=== PATIENT | male | born 1955 | race Caucasian/White ===

== ENCOUNTER 2018-03-31 15:19 | Emergency (ER) | payer OTHER ==
[~2018-03-31] VITALS: Ht 182.9 cm; Wt 90.7 kg
[~2018-03-31 15:19] MED LIST: ACET325 PO; ANTIBIOTIC; Bystolic5 MG PO; FLUSAL1005 INH; FLUSAL2505 INH; NEBI10 PO; TIOT18 INH
[2018-03-31] MEDS ORDERED: GABA300 PO (15:45)
== END 2018-03-31 16:13 | disposition home or self-care (01) ==
LOC: ER 15:19
DX: F41.9 Anxiety disorder, unspecified (principal); Z79.899 Other long term (current) drug therapy; I10 Essential (primary) hypertension; Z87.891 Personal history of nicotine dependence
CPT/HCPCS: 99283

== ENCOUNTER 2019-12-26 13:39 | Inpatient (IN) | payer OTHER ==
[~2019-12-26] VITALS: Ht 185.4 cm; Wt 89.4 kg
[~2019-12-26 13:39] MED LIST changes: -FLUSAL2505 INH
[2019-12-26 14:03] LABS: BASOPHILS ABSOLUTE AUTO 0.01 K/mm3 (0.00-0.23); BASOPHILS PERCENT AUTO 0 % (0-2); EOSINOPHILS ABSOLUTE AUTO 0.03 K/mm3 (0.00-0.68); EOSINOPHILS PERCENT AUTO 0 % (0-6); Hematocrit 52.6 % (37.0-53.0); Hemoglobin 17.4 g/dL (13.5-17.5); IMMATURE GRAN ABSOLUTE AUTO 0.03 K/mm3 (0.00-0.10); IMMATURE GRAN PERCENT AUTO 0 % (0-1); LYMPHOCYTES ABSOLUTE AUTO 1.46 K/mm3 (0.84-5.20); LYMPHOCYTES PERCENT AUTO 14 % (21-46); MONOCYTES ABSOLUTE AUTO 0.61 K/mm3 (0.16-1.47); MONOCYTES PERCENT AUTO 6 % (4-13); Mean Corpuscular HGB 32.7 pg (26.0-34.0); Mean Corpuscular HGB Conc 33.1 g/dL (31.5-36.5); Mean Corpuscular Volume 99 fL (80-100); Mean Platelet Volume 10.9 fL (9.1-12.4); NEUTROPHILS ABSOLUTE AUTO 8.03 K/mm3 (1.96-9.15); NEUTROPHILS PERCENT AUTO 79 % (41-73); Platelet Count 150 K/mm3 (150-400); RDW Coefficient Variation 13.2 % (11.7-14.2); RDW Standard Deviation 48.2 fL (35.1-46.3); Red Blood Cell Count 5.32 M/mm3 (4.30-5.90); White Blood Cell Count 10.17 K/mm3 (4.00-11.30)
[2019-12-26 14:17] LABS: International Normalized Ratio 0.95; Prothrombin Time Results 10.2 Sec (9.7-11.5)
[2019-12-26 14:18] LABS: Alanine Aminotransfer (ALT/SGP 39 U/L (12-78); Albumin, Blood 4.1 g/dL (3.4-5.0); Albumin/Globulin Ratio 1.1 (0.8-1.8); Alk Phos 79 U/L (50-136); Anion Gap 4 mmol/L (6-16); Aspartate Aminotrans (AST/SGOT 20 U/L (12-37); Bilirubin, Total 1.2 mg/dL (0.1-1.0); Blood Urea Nitrogen 17 mg/dL (8-24); Bun/Creatinine Ratio 18.3 (12.0-20.0); CO2, Blood 28 mmol/L (21-32); Calcium, Blood 9.5 mg/dL (8.5-10.1); Chloride, Blood 105 mmol/L (98-108); Creatinine, Blood 0.93 mg/dL (0.60-1.20); Ethanol (Alcohol), Blood, Med <3 mg/dL; Globulin, Blood 3.6 g/dL (2.2-4.0); Glomerular Filtration Rate >60 (60-); Glucose, Blood 106 mg/dL (70-99); Potassium, Blood 4.4 mmol/L (3.5-5.5); Sodium, Blood 137 mmol/L (136-145); Total Protein, Blood 7.7 g/dL (6.4-8.2)
[2019-12-26] MEDS ORDERED: INCRUSE ELLI62.5 MC1 INH (15:00)
[2019-12-26] MEDS ORDERED: WIXELA 250-501 EAC1 INH (15:01)
[2019-12-26] MEDS ORDERED: GABA300 PO (15:01)
[2019-12-26] MEDS ORDERED: METO50ER PO (15:02)
[2019-12-26] MEDS ORDERED: Ventolin/Prove6.7 GM INH (15:04)
--- NOTE | 2019-12-26 19:05 | NUR ---
PT ADMITTED TO ROOM 312 FROM ED AT 1735. ABLE TO TRANSFER TO BED WITH 1 PERSON SBA. ENCOURAGED PT TO USE CALL BUTTON FOR HELP RATHER THAN GETTING UP BY HIMSELF. SLURRING HIS WORDS AND L FACIAL DROOP NOTED ON VISUAL ASSESSMENT. GLYCERIN SWABS AND LIP BALM GIVEN FOR ORAL COMFORT UNTIL ABLE TO BE EVALUATED BY MODELING AND SIMULATION ANALYST. UNISHEAR OPERATOR REPORTED NOTING A R FACIAL DROOP WHEN COMING UP TO FLOOR WITH PT BUT NONE NOTED ON ARRIVAL OR DURING ASSESSMENT.
--- NOTE | 2019-12-27 04:27 | NUR ---
SHIFT SUMMARY- PT. A&O, PLEASANT AND COOPERATIVE WITH CARE. NOTED TO HAVE LT FACIAL DROOP AND SLURRED SPEECH. PT. INSTRUCTED TO USE CALL LIGHT FOR ASSISTANCE TO THE BATHROOM. ALSO SUCTION WAS SET UP AT BEDSIDE, EDUCATED PT. ON PRN USE FOR INCREASE SECRETIONS. PT. VERBALIZED UNDERSTANDING. PT. APPEARED TO HAVE RESTED WELL T/O THE SHIFT, NO APPARENT DISTRESS NOTED. NPO FOR ST EVAL THIS AM. CALL LIGHT WITHIN REACH AND SIDE RAILS UP X2. WILL CONT TO MONITOR.
[2019-12-27 06:04] LABS: CHOL/HDL RATIO 4.7; Cholesterol 196 mg/dL (50-200); HDL Cholesterol 42 mg/dL (>39); LDL/HDL RATIO 2.9; Low Density Lipoprotein Chol 121 mg/dL (0-110); Triglycerides 167 mg/dL (30-160); Very Low Density Lipoprot Chol 33 mg/dL (6-32)
--- NOTE | 2019-12-27 19:39 | NUR ---
SHIFT SUMMARY: NO ACUTE CHANGES TO REPORT THIS SHIFT. PT A&O; CALM AND COOPERATIVE WITH CARE. STROKE c L SIDE FACILA DROOP & SLURRED SPEECH; PT HX BELLS PALSY. SPEECH EVAL TODAY; ASPIRATION PRECAUTIONS. FLUIDS & ANTICOAGULANTS CONTINUING. REPORT GIVEN TO ONCOMING RN.
--- NOTE | 2019-12-27 22:55 | NUR ---
HEARTBURN *LATE ENTRY* PT REPORTS HEARTBURN & "ACID" FEELING & ASKS FOR TUMS. NOTIFIED HERMAN P & HE ORDERED 20MG PEPCID BID, ALONG W/1000MG TUMS PRN. MEDICATED PT & WILL CONT TO MONITOR.
[2019-12-28 05:46] LABS: Alanine Aminotransfer (ALT/SGP 35 U/L (12-78); Albumin, Blood 3.3 g/dL (3.4-5.0); Albumin/Globulin Ratio 1.1 (0.8-1.8); Alk Phos 64 U/L (50-136); Anion Gap 3 mmol/L (6-16); Aspartate Aminotrans (AST/SGOT 17 U/L (12-37); Bilirubin, Total 1.6 mg/dL (0.1-1.0); Blood Urea Nitrogen 12 mg/dL (8-24); Bun/Creatinine Ratio 15.3 (12.0-20.0); CO2, Blood 26 mmol/L (21-32); Calcium, Blood 8.4 mg/dL (8.5-10.1); Chloride, Blood 109 mmol/L (98-108); Creatinine, Blood 0.79 mg/dL (0.60-1.20); Globulin, Blood 3.1 g/dL (2.2-4.0); Glomerular Filtration Rate >60 (60-); Glucose, Blood 94 mg/dL (70-99); Potassium, Blood 4.1 mmol/L (3.5-5.5); Sodium, Blood 138 mmol/L (136-145); Total Protein, Blood 6.4 g/dL (6.4-8.2)
--- NOTE | 2019-12-28 06:38 | NUR ---
SHIFT SUMMARY NO ACUTE CHANGES THIS SHIFT. AOX4. VSS. L FACIAL DROOP w/OCCASIONAL SLURRING OF WORDS, NO OTHER DEFICITS. 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 REPORTED HEARTBURN, ACID & MEDICATED PER NEW ORDERS, PT REPORTED RELIEF. TELE NSR HR 63. PT REPORTS HE IS HOPING TO DC HOME TODAY. CALL LIGHT IN REACH.
[2019-12-28] MEDS ORDERED: ASPI81CH PO (16:24)
[2019-12-28] MEDS ORDERED: ATOR40TA PO (16:25)
[2019-12-28] MEDS ORDERED: CLOP75 PO (16:25)
--- NOTE | 2019-12-28 17:36 | NUR ---
PATIENT DISCHARGE: PATIENT DISCHARGED TO HOME THIS SHIFT. MEDICATION RECONCILIATION COMPLETED; MED LIST FAXED TO [facility]. DISCHARGE EDUCATION COMPLETED WITH PATIENT. PATIENT TRANSPORTED TO EXIT BY [facility] STAFF WITH WHEELCHAIR AT 1710. PATIENT DEPARTED [facility] VIA PRIVATE AUTO.
== END 2019-12-28 17:08 | disposition home or self-care (01) | DRG 66 ==
LOC: ER 13:39 → MEDS 15:41
PROVIDERS: Internal Medicine; Nurse Practitioner Acute Care; Physician Assistant; ADMIT Internal Medicine
DX: I63.511 Cerebral infarction due to unspecified occlusion or stenosis of right middle cerebral artery (principal); R29.810 Facial weakness; Z87.891 Personal history of nicotine dependence; I10 Essential (primary) hypertension; J44.9 Chronic obstructive pulmonary disease, unspecified; I73.9 Peripheral vascular disease, unspecified; I65.21 Occlusion and stenosis of right carotid artery; E78.5 Hyperlipidemia, unspecified; R47.81 Slurred speech
CPT/HCPCS: 36415; 70450; 71045; 80053; 80061; 83036; 84443; 85025; 85610; 92526; 92610; 93005; 93010; 93306; 93880; 94640; 94760; 97116; 97161; 97165; 97530; 99285-25; A9270-GY; G0480; J1650; J7030

== ENCOUNTER 2020-01-07 09:31 | Emergency (ER) | payer OTHER ==
[~2020-01-07] VITALS: Ht 185.4 cm; Wt 83.9 kg
[~2020-01-07 09:31] MED LIST changes: +ASPI81CH PO; +ATOR40TA PO; +CLOP75 PO; +GABA300 PO; +INCRUSE ELLI62.5 MC1 INH; +METO50ER PO; +Ventolin/Prove6.7 GM INH; +WIXELA 250-501 EAC1 INH
== END 2020-01-07 11:07 | disposition home or self-care (01) ==
LOC: ER 09:31
DX: R04.0 Epistaxis (principal); I10 Essential (primary) hypertension; J44.9 Chronic obstructive pulmonary disease, unspecified; I73.9 Peripheral vascular disease, unspecified; G62.9 Polyneuropathy, unspecified; Z79.82 Long term (current) use of aspirin; Z79.899 Other long term (current) drug therapy
CPT/HCPCS: 99283

== ENCOUNTER 2022-04-23 12:32 | Inpatient (IN) | payer OTHER ==
[~2022-04-23] VITALS: Ht 185.4 cm; Wt 95.7 kg
[2022-04-23 17:09] LABS: BASOPHILS ABSOLUTE AUTO 0.01 K/mm3 (0.00-0.23); BASOPHILS PERCENT AUTO 0 % (0-2); EOSINOPHILS ABSOLUTE AUTO 0.11 K/mm3 (0.00-0.68); EOSINOPHILS PERCENT AUTO 1 % (0-6); Hematocrit 52.5 % (37.0-53.0); Hemoglobin 16.9 g/dL (13.5-17.5); IMMATURE GRAN ABSOLUTE AUTO 0.05 K/mm3 (0.00-0.10); IMMATURE GRAN PERCENT AUTO 0 % (0-1); LYMPHOCYTES ABSOLUTE AUTO 1.69 K/mm3 (0.84-5.20); LYMPHOCYTES PERCENT AUTO 14 % (21-46); MONOCYTES ABSOLUTE AUTO 0.61 K/mm3 (0.16-1.47); MONOCYTES PERCENT AUTO 5 % (4-13); Mean Corpuscular HGB 31.5 pg (26.0-34.0); Mean Corpuscular HGB Conc 32.2 g/dL (31.5-36.5); Mean Corpuscular Volume 98 fL (80-100); Mean Platelet Volume 10.6 fL (9.1-12.4); NEUTROPHILS ABSOLUTE AUTO 9.45 K/mm3 (1.96-9.15); NEUTROPHILS PERCENT AUTO 79 % (41-73); Platelet Count 193 K/mm3 (150-400); RDW Coefficient Variation 12.7 % (11.7-14.2); RDW Standard Deviation 45.9 fL (35.1-46.3); Red Blood Cell Count 5.37 M/mm3 (4.30-5.90); White Blood Cell Count 11.92 K/mm3 (4.00-11.30)
[2022-04-23 17:30] LABS: Albumin, Blood 4.1 g/dL (3.4-5.0); Albumin/Globulin Ratio 1.1 (0.8-1.8); Bilirubin, Total 0.8 mg/dL (0.1-1.0); Bun/Creatinine Ratio 16.1 (12.0-20.0); Calcium, Blood 9.6 mg/dL (8.5-10.1); Creatinine, Blood 0.93 mg/dL (0.60-1.20); Globulin, Blood 3.7 g/dL (2.2-4.0); Potassium, Blood 4.5 mmol/L (3.5-5.5); Total Protein, Blood 7.8 g/dL (6.4-8.2)
[2022-04-24 03:58] LABS: BASOPHILS ABSOLUTE AUTO 0.01 K/mm3 (0.00-0.23); BASOPHILS PERCENT AUTO 0 % (0-2); EOSINOPHILS ABSOLUTE AUTO 0.13 K/mm3 (0.00-0.68); EOSINOPHILS PERCENT AUTO 1 % (0-6); Hemoglobin 15.2 g/dL (13.5-17.5); IMMATURE GRAN ABSOLUTE AUTO 0.01 K/mm3 (0.00-0.10); IMMATURE GRAN PERCENT AUTO 0 % (0-1); LYMPHOCYTES ABSOLUTE AUTO 2.25 K/mm3 (0.84-5.20); LYMPHOCYTES PERCENT AUTO 23 % (21-46); MONOCYTES ABSOLUTE AUTO 0.57 K/mm3 (0.16-1.47); MONOCYTES PERCENT AUTO 6 % (4-13); Mean Corpuscular HGB 31.9 pg (26.0-34.0); Mean Corpuscular Volume 97 fL (80-100); Mean Platelet Volume 10.4 fL (9.1-12.4); NEUTROPHILS ABSOLUTE AUTO 6.94 K/mm3 (1.96-9.15); NEUTROPHILS PERCENT AUTO 70 % (41-73); Platelet Count 177 K/mm3 (150-400); RDW Coefficient Variation 12.6 % (11.7-14.2); RDW Standard Deviation 45.1 fL (35.1-46.3); Red Blood Cell Count 4.76 M/mm3 (4.30-5.90); White Blood Cell Count 9.91 K/mm3 (4.00-11.30)
[2022-04-24 04:20] LABS: Calcium, Blood 8.4 mg/dL (8.5-10.1); Creatinine, Blood 0.79 mg/dL (0.60-1.20); Potassium, Blood 4.4 mmol/L (3.5-5.5)
--- NOTE | 2022-04-24 07:27 | NUR ---
SHIFT SUMMARY PT ARRIVED TO [facility] AT APPROXIMATELY 2200, PT STOOD AND TRANSFERED FROM [facility] TO HOSPITAL BED INDEPENDELY ONLY REQUIRING ASSISTANCE WITH MOVING WITH CHEST TUBE. PT A&Ox4, CALLS AND COMMUNICATES NEEDS APPROPRIATELY. VSS, SpO2> 92% RA, SINUS 80's. CHEST TUBE IN PLACE IN RIGHT LATERAL CHEST, DRESSING INTACT WITH SANGUINEOUS DRAINAGE THAT WAS PRESENT UPON ARRIVAL. PT REPORTS MILD DISCOMFORT AND SHARP PAIN AT INSERTION SITE WHEN TAKING DEEP BREATHS OR COUGHING. CHEST TUBE CONNECTED TO SUCTION, NO AIR LEAKS PRESENT. PT ARRIVED WITH 10mls SANGUINEOUS DRAINAGE, THERE IS NOW 30mls OF SANGUINEOUS DRAINAGE IN CANISTER. PT DENIES SOB. NO ACUTE EVENTS. REPORT OFF TO DAY SHIFT RNJOANA.
--- NOTE | 2022-04-24 18:22 | NUR ---
END OF SHIFT SUMMARY: PATIENT DENIED SHORTNESS OF BREATH AND CHEST PAIN THROUGHOUT THE SHIFT. PATIENT NOTED SOME TENDERNESS AT INSERTION SITE OF CHEST TUBE. DRESSING REMAINS INTACT WITH NO AIR LEAK NOTED. CHEST TUBE SET TO SUCTION PER ORDERS. MINIMAL SEROUS-SANGINOUS DRAINAGE IN TUBING. NO NEW DRAINAGE FROM INSERTION SITE. PATIENT SPO2 STABLE FROM 92-94% ON ROOM AIR. PATIENT UP TO THE CHAIR WITHOUT EXERTIONAL SHORTNESS OF BREATH OR DECREASE IN SPO2.
--- NOTE | 2022-04-25 01:09 | NUR ---
Chest tube update Chamber B of Atrium appears to be at 18 with indicator ball. Pt denies any significant changes to breathing. Sats 96% on 1 L via NC at this time. Crepitus remains in marked lines by this RN, concession supervisor Crystal called to bedside to verify as well. Pt has no complaints of pain at this time. Atrium remains below pt's chest hanging from lower side rail of bed to keep hose straight and prevent further kinking of tube. Suction at reccomended level of -80 on wall for Atrium and set to -20 on Atrium itself.
[2022-04-25 04:01] LABS: Hematocrit 44.8 % (37.0-53.0); Hemoglobin 14.8 g/dL (13.5-17.5); Mean Corpuscular HGB 31.8 pg (26.0-34.0); Mean Corpuscular Volume 96 fL (80-100); Mean Platelet Volume 10.5 fL (9.1-12.4); Platelet Count 164 K/mm3 (150-400); RDW Coefficient Variation 12.6 % (11.7-14.2); RDW Standard Deviation 45.1 fL (35.1-46.3); Red Blood Cell Count 4.66 M/mm3 (4.30-5.90); White Blood Cell Count 9.58 K/mm3 (4.00-11.30)
[2022-04-25 04:27] LABS: Albumin, Blood 3.2 g/dL (3.4-5.0); Bilirubin, Total 1.2 mg/dL (0.1-1.0); Calcium, Blood 8.3 mg/dL (8.5-10.1); Creatinine, Blood 0.75 mg/dL (0.60-1.20); Globulin, Blood 3.2 g/dL (2.2-4.0); Potassium, Blood 4.2 mmol/L (3.5-5.5); Total Protein, Blood 6.4 g/dL (6.4-8.2)
--- NOTE | 2022-04-25 06:49 | NUR ---
CALL TO DR SUMNER THIS RN CALLS TO NOTIFY DR SUMNER OF PT C/O WORSENED BREATHING RECENTLY THIS AM, NOTIFIED THAT RESULT OF CHEST XRAY HAS NOT BEEN REPORTED BACK AND REPEAT IS BEING DONE PER ORDER NOW. DR SUMNER TO REVIEW XRAY.
--- NOTE | 2022-04-25 08:11 | NUR ---
SHIFT SUMMARY PT AOX4, DENIES CP, SR 80'S. BREATHING APPEARS UNLABORED ALTHOUGH TACHYPNEIC RR 20'S. AT SHIFT CHANGE, THIS RN TO BEDSIDE WITH DAY RN AND KINK IN TUBING PROXIMAL TO INSERTION SITE ABOVE CONNECTION PORT NOTED. FLUCTUATION IN B CHAMBER NOTED. FLUCTUATION AT 3 CM. PT IN NO APPARENT DISTRESS. KINK RESOLVED BY DAY RN. SATS STABLE. NO CREPITUS NOTED TO CHEST. AROUND [id number] THIS RN TO BEDSIDE D/T PT SATS DROPPING INTO HIGH 80'S LOW 90'S. KINK NOTED AT SAME AREA DESPITE REPOSITIONING OF TUBE ALONG PT. FLUCTUATION IN B CHAMBER OF [facility] UP TO 5CM. CREPITUS NOTED TO R CHEST WALL AND R SIDE. PROJECT MANAGEMENT MANAGER RADHA CALLED TO BEDSIDE. RADHA RN CALLS PROVIDER, ORDER FOR CHEST XRAY STAT OBTAINED. DR BAILEY CALLED AND REPORTED HE WOULD READ CHEST XRAY. DR SUMNER CONTACTED THIS AM D/T PT REPORTING WORSENED SOB, CREPITUS DOES NOT SEEM SIGNIFICANTLY CHANGED. PT STATES HE FEELS LIKE HE DID PRIOR TO CHEST TUBE INSERTION. DR SUMNER NOTIFIED, DR SUMNER TO READ REPEAT CHEST XRAY THIS AM. PT SATS STABLE ON 2 L O2 VIA NC.
--- NOTE | 2022-04-25 08:28 | NUR ---
SHIFT SUMMARY PT AOX4 WHEN ARRIVED FROM ER, APPEARED LETHARGIC. INCREASED IN SOMNOLENCE AFTER ARRIVAL. UNABLE TO ANSWER QUESTIONS FOR ADMISSION BY THIS RN. UNSURE OF MEDS, STATES HE HAS NOT BEEN TAKING THEM. DENIED PAIN. BREATHING APPEARED LABORED, PT ARRIVED ON CPAP ON 2L, THIS RN INCREASED TO 3 L D/T DESATS INTO 80'S. ABG REPORTED BACK TO THIS RN CRITICAL THIS AM AFTER PT ARRIVAL TO PCU FROM ER. RESIDENT NOTIFIED, BICARB ORDERED AND ADMIN. PT URINATED IN URINAL 600 MLS OF NOVA COLORED URINE. LS COARSE WITH CRACKLES IN LOWER BASES.
--- NOTE | 2022-04-25 13:33 | NUR ---
CHEST TUBE UPDATE MD SUMNER TO BEDSIDE THIS AM AFTER REPEAT CXR; CHEST TUBE REMOVED FROM SUCTION. REPEAT CXR AT NOON. MD SUMNER TO BEDSIDE TO CLAMP CHEST TUBE AT 1245. REPEAT CXR ORDERED FOR 1600. NO FURTHER ORDERS AT THIS TIME. VITALS REMAIN STABLE. PT ON 1L NC WITH O2 >94%. NO FURTHER SPREADING/WORSENING OF SUBCUTANEOUS EMPHYSEMA NOTED BY THIS RN. PATIENT APPEARS TO BE SLEEPING WITH EQUAL CHEST RISE/FALL NOTED. HOB ELEVATED. BED IN LOWEST POSITION AND CALL LIGHT WITHIN REACH.
--- NOTE | 2022-04-25 16:44 | NUR ---
SHIFT SUMMARY PATIENT CONTINUES TO BE A&O X4. INDEPENDENT WITH URINAL AND CALLING APPROPRIATELY. REPEAT CXR DONE AT 1600. AWAITING FURTHER INSTRUCTIONS/ORDERS AFTER PROVIDER READS CXR. PATIENT ON RA CURRENLTY WITH O2 MAINTAINING >92%. PATIENT STATES HE IS SOB WITH EXERTION. CHEST TUBE CONTINUES TO BE CLAMPED PER MD ORDERS. NO FURTHER WORSENING OR SPREADING OF SUBCUTANEOUS EMPHYSEMA. DRESSING C/D/I. PATIENT IS CURRRENTLY SITTING UP IN BED VISITING WITH HIS MOTHER WHO IS AT HIS BEDSIDE. PATIENT DENIES PAIN. BED IN LOWEST POSITION AND CALL LIGHT WITHIN REACH. THIS RN WILL CONTINUE TO MONITOR PATIENT UNTIL SHIFT CHANGE AT 1900.
--- NOTE | 2022-04-25 17:57 | NUR ---
PATIENT UPDATE MD SUMNER TO BEDSIDE TO REMOVE CHEST TUBE AT 1700. PATIENT TOLERATED REMOVAL WELL. NO SOB/CHEST PAIN REPORTED AFTER REMOVAL. PETROLEUM DRESSING PLACED ON INCISION SITE WITH STERILE GAUZE AND TEGADERM DRESSING PLACED ON TOP. PATIENT ON RA CURENLTYT WITH O2 SATS >92%. DYSPNEA/TACHYPNEA NOTED WITH EXERTION AND ADL'S. VITALS STABLE. MD NUNEZ WITH ORDERS FOR DISCHARGE. PATIENT VERBALIZED BEING READY TO GO HOME. PATIENT WILL BE DISCHARGE HOME ONCE DISCHARGE IS COMPLETE. MOTHER AT BEDSIDE. WILL CONTINUE TO MONITOR UNTIL PATIENT IS DISCHARGED. BED IN LOWEST POSITION AND CALL LIGHT WITHIN REACH.
--- NOTE | 2022-04-25 18:33 | NUR ---
DISCHARGE NOTE PATIENT UP FOR DISCHARGE. NO CHANGES TO MEDICATIONS. AFTERCARE FOR CHEST TUBE SITE DISCUSSED WITH PATIENT AND PATIENT'S MOTHER. INITIAL INSTRUCTIONS GIVEN BY MD SUMNER AFTER CHEST TUBE REMVOVAL ABOUT WAITING TO SHOWER FOR 24 HRS AND HOW TO REPLACE DO WOUND CARE UNTIL FOLLOW UP APPOINTMENT. THIS RN REINFORCED TEACHING AT TIME OF DISCHARGE INSTRUCTIONS. PATIENT AND MOTHER VERBALIZED UNDERSTANDING. INSTRUCTIONS GIVEN ON FOLLOW UP APPOINTMENTS IN PRINTED FORM. INFORMATION ABOUT PNEUMOTHORAX GIVEN TO PATIENT IN A PRINTED HAND-OUT. PATIENT AND MOTHER VERBALIZED UNDERSTANDING OF DISCHARGE INSTRUCTIONS AND WOUND CARE. PATIENT USED TEACH BACK METHOD TO THIS RN TO VERBALIZE WHAT SYMPTOMS HE SHOULD SEEK TREATMENT IMMEDIATELY SUCH CHEST PAIN OR INCREASING SOB. PATIENT'S IV REMOVED AND TELEMETRY STICKERS REMOVED. PATIENT TAKEN OUT VIA WHEELCHAIR BY THIS RN AND HAD NO SIGNS/SYMPTOMS OF RESPIRATORY DISTRESS. AMBULATED WELL WITHOUT ASSISTANCE. VITALS STABLE PRIOR TO DISCHARGE. ON RA WITH O2 SATS >92%.
== END 2022-04-25 18:40 | disposition home or self-care (01) | DRG 201 ==
LOC: ER 12:32 → PCU 20:04
PROVIDERS: Internal Medicine; Student in an Organized Health Care Education/Training Program; ADMIT Family Medicine
PROC: 0W9930Z Drainage of Right Pleural Cavity with Drainage Device, Percutaneous Approach (ICD-10-PCS; principal; 2022-04-23)
DX: J93.83 Other pneumothorax (principal); I10 Essential (primary) hypertension; J44.9 Chronic obstructive pulmonary disease, unspecified; E78.5 Hyperlipidemia, unspecified; G62.9 Polyneuropathy, unspecified; I73.9 Peripheral vascular disease, unspecified; Z95.820 Peripheral vascular angioplasty status with implants and grafts; Z98.890 Other specified postprocedural states; Z79.82 Long term (current) use of aspirin; Z79.899 Other long term (current) drug therapy; Z79.02 Long term (current) use of antithrombotics/antiplatelets; Z87.891 Personal history of nicotine dependence; D72.828 Other elevated white blood cell count; Z86.73 Personal history of transient ischemic attack (TIA), and cerebral infarction without residual deficits
CPT/HCPCS: 32551; 36415; 71045; 80048; 80053; 85025; 85027; 93005; 93010; 94640; 94664; 94760; 96374-59; 96375-59; 99285-25; A9270; J0690; J1170; J1885; J2405; J3010